=== PATIENT | female | born 1990 | race Hispanic/Latino ===

== ENCOUNTER 2020-01-24 13:33 | Outpatient (CLI) | payer OTHER ==
[2020-01-24 14:06] VITALS: BP 129/69
[2020-01-24 14:56] LABS: Bacteria,Urine 4+ /HPF (Negative); Bilirubin,Urine NEG (Negative); Blood,Urine SM (Negative); Color,Urine Yellow (Yellow); Mucus,Urine FEW /HPF
[2020-01-24] MEDS ORDERED: LACTATED RINGERS 1,000 ML IV SCH (15:00)
== END 2020-01-24 15:50 | disposition home or self-care (01) ==
LOC: TRG 13:33 → APU 13:34 → TRG 15:50
PROVIDERS: ATTEND Obstetrics & Gynecology
DX: O60.03 Preterm labor without delivery, third trimester (principal); Z3A.36 36 weeks gestation of pregnancy
CPT/HCPCS: 59025; 81001; 87086

== ENCOUNTER 2020-01-31 15:21 | Observation (INO) | payer OTHER ==
[2020-01-31] MEDS ORDERED: LACTATED RINGERS 1,000 ML IV ONE (16:10)
[2020-01-31 16:35] LABS: Bacteria,Urine 1+ /HPF (Negative); Bilirubin,Urine NEG (Negative); Blood,Urine SM (Negative); Color,Urine Amber (Yellow); Protein,Urine <15 mg/dL mg/dL (Negative)
[2020-01-31] MEDS ORDERED: ACETAMINOPHEN 500 MG TAB PO ONE (16:47)
--- NOTE | 2020-01-31 17:46 | Ultrasound Report ---
ULTRASOUND RENAL INDICATION / CLINICAL INFORMATION: r/o kidney stones.. COMPARISON: None available. FINDINGS: RIGHT KIDNEY: Length = 9.9 cm. [normal > 9 cm] - Parenchymal Thickness = 1.4 cm. [normal > 1.5 cm] - Echogenicity: Normal. - Hydronephrosis: Mild - Cyst or mass: No significant abnormality. - Stones: 9 mm nonobstructive calyceal stone in the midpole region. LEFT KIDNEY: Length = 11.8 cm. [normal > 9 cm] - Parenchymal Thickness = 1.7 cm. [normal > 1.5 cm] - Echogenicity: Normal. - Hydronephrosis: Mild - Cyst or mass: No significant abnormality. - Stones: Scattered punctate bilateral nonobstructive nephrolithiasis. URINARY BLADDER: No significant abnormality. FREE FLUID: None. ADDITIONAL FINDINGS: None. IMPRESSION: 1. Bilateral nonobstructive nephrolithiasis but there is also mild bilateral hydronephrosis which cou ld be related to distal compression of the ureters or the bladder in this patient. Signer Name: Michael Crowell MD Signed: 01/31/2020 5:41 PM Workstation Name: [id number]
--- NOTE | 2020-01-31 18:47 | History and Physical Report ---
History of Present Illness Date of examination: 01/31/20 Date of admission: 01/31/2020 Chief complaint: blood in my urine History of present illness: Pt is a 29 y/o 37 0/7 weeks presents c/o gross hematuria and severe dysuria. Pt has bilateral kidney stones that she states she has had for some time and during the has had no problems except for microscopic hematuria with negative urine cultures. Most recently she was seen in triage last week and started on Macrobid but urine cx from that visit was also negative. Today she has more blood in urine and states it feels like a cutting burning sensation as the urine comes out. She denies any fevers or chills. States she has not seen any stones. She was checked by Tiesha CARDONA and noted to be closed and I did nor re-exmaine her. Pt admitted to pain relief as well as to have evaluation by MFM and urology regarding her stones. Stones seen on reneal sonogram but also bilateral hydronephrosis. She does not c/o back pain or vaginal bleeding. +FM. Initial fetus showed some tachycardia but responded to IV hydration. Pt GBS is negative. I d/w plan of care and both her and agree. All questions were addressed and answered. She declines narcotic pain meds at this time and prefers tylenol po for now. EDC Calculations LMP: 02/08/2020 EDC Confirmation: 02/21/2020 Gestational Age: 7 6/7 weeks Past History : 2 Term Births: 1 Premature Births: 0 Living Children: 1 Para: 1 Mult. Births: 0 Prev : 0 Aborta: 0 Elect. Ab: 0 Spont. Ab: 0 Ectopics: 0 # 1 Delivery date: 03/18/2012 Weeks Gestation: 39 labor: no Delivery type: Vacuum Hours of labor: 15 Anesthesia type: epidural Delivery location: [facility] Sex: female weight: 7.75 Comments: Meconium Past Medical History: Anxiety Fibroids (2017) Kidney Stone (2019) Past Surgical History: Cholecystectomy (2017) Family History Summary: Other family member - Has Family History of Hypertension - Entered On: 07/11/2019 Other family member - Has Family History of CVA or Stroke - Entered On: 07/11/2019 General Comments - FH: No Family History of Breast Cancer No Family History of Colon Cancer No Family History of Ovarvian Cancer Social History: Patient is single no etoh, no illicit drug use, no tobacco use Marital Status: Engaged Children: 1 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 of genital herpes: no Genetic History Congenital Heart Defect: Mom: no Dad: no Yolanda Disease: Mom: no Dad: no Thalassemia Mom: no Dad: no Neural Tube Defect Mom: no Dad: no Down's Syndrome Mom: no Dad: no George-Sachs Mom: no Dad: no Sickle Cell Disease/Trait Mom: no Dad: no Hemophilia Mom: no Dad: no Muscular Dystrophy Mom: no Dad: no Cystic Fibrosis Mom: no Dad: no Maggie Chorea Mom: no Dad: no Mental Retardation Mom: no Dad: no Fragile X Mom: no Dad: no Other Genetic/Chromosomal Disorder Mom: no Dad: no Child w/other defect Mom: no Dad: no Active Medications (reviewed today): RX 1 TABS ( VIT-FE FUMARATE-FA TABS) one po q day ZOFRAN ODT 8 MG ORAL TABLET DISINTEGRATING (ONDANSETRON) 1 po q12hrs prn MACROBID 100 MG ORAL CAPSULE (NITROFURANTOIN MONOHYD MACRO) 1 bid po PNV () Current Allergies (reviewed today): * HYDROCODONE (Critical) AUGMENTIN (AMOXICILLIN-POT CLAVULANATE TABS) (Critical) Past History Past Medical History: kidney stones, other (anxiety) Past Surgical History: other (see hpi) 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 (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 hpi) Family/Genetic History: other (see hpi) Social history: no significant social history, - Obstetrical History Expected Date of Delivery: 02/21/20 Actual Gestation: 37 Week(s) 0 Day(s) : 2 Para: 1 Number of Living Children: 1 Medications and Allergies Allergies Allergy/AdvReac Type Severity Reaction Status Date / Time No Known Allergies Allergy Verified 01/24/20 13:57 Review of Systems All systems: negative - Vital Signs Vital signs: Vital Signs Pulse Pulse Ox 101 H 98 01/31/20 16:22 01/31/20 16:22 Temp Pulse Resp BP Pulse Ox 97 H 16 119/73 98 01/31/20 16:37 01/31/20 17:04 01/31/20 16:23 01/31/20 16:37 - Physical Exam Lungs: Positive: Normal air movement Abdomen: Positive: normal appearance, soft. Negative: distention, tenderness, guarding Genitourinary (Female): Positive: other (deferred as pt was examined by senior system operator earlier and has no new c/o) - Obstetrical FHR: category 1 Results Abnormal lab results 01/31/20 Range/Units 16:10 Urine WBC (Auto) 22.0 H (0.0-6.0) /HPF All other labs normal. Assessment and Plan - Patient Problems (1) 37 weeks gestation of Current Visit: Yes Status: Acute (2) Hematuria Current Visit: Yes Status: Acute Plan to address problem: -likely due to renal stones. -Will obtain consult with urology to determine if any treatment is recommended at time (3) Renal stones Current Visit: Yes Status: Acute Plan to address problem: -see bilaterally. Unclear if larger than previously because previous study not available -[facility] consultation regarding timing of delivery given pt does have renal stones, bilateral hydronephrosis and is symptomatic -urology consultation -pain management at this time.
[2020-01-31] MEDS ORDERED: SIMETHICONE 80 MG CHEW TAB PO PRN (18:56)
[2020-01-31] MEDS ORDERED: diphenhydrAMINE 25 MG CAP PO PRN (18:56)
[2020-01-31] MEDS ORDERED: ACETAMINOPHEN 325 MG TAB PO PRN (18:56)
[2020-01-31] MEDS ORDERED: DOCUSATE SODIUM 100 MG CAP PO PRN (18:56)
[2020-01-31] MEDS ORDERED: LACTATED RINGERS 1,000 ML IV SCH (19:00)
[2020-01-31] MEDS ORDERED: ACETAMINOPHEN 500 MG TAB PO PRN (19:20)
[2020-01-31] MEDS: cefTRIAXone/NS 1 GM/50 ML 1 GM/50 ML BAG IV SCH (19:51)
[2020-01-31 19:58] LABS: Basophils # (Auto) 0.1 K/mm3 (0.0-0.1); Basophils % (Auto) 0.5 % (0.0-1.8); Eosinophils # (Auto) 0.2 K/mm3 (0.0-0.4); Eosinophils % (Auto) 1.6 % (0.0-4.3); Hematocrit 30.2 % (30.3-42.9); Lymphocytes # (Auto) 1.7 K/mm3 (1.2-5.4); Lymphocytes % (Auto) 16.2 % (13.4-35.0); Mean Corpuscular HGB Conc 33 % (30-34); Mean Corpuscular Volume 81 fl (79-97); Monocytes # (Auto) 0.8 K/mm3 (0.0-0.8); Monocytes % (Auto) 7.3 % (0.0-7.3); Platelet Count 250 K/mm3 (140-440); Red Blood Count 3.71 M/mm3 (3.65-5.03); Red Cell Distribution Width 14.2 % (13.2-15.2)
[2020-01-31 20:12] LABS: Alanine Aminotransferase 12 units/L (7-56); Albumin 3.3 g/dL (3.9-5); Blood Urea Nitrogen 5 mg/dL (7-17); Calcium 8.5 mg/dL (8.4-10.2); Hemolysis Index 0
[2020-01-31 20:13] LABS: BUN/Creatinine Ratio 8
--- NOTE | 2020-01-31 20:56 | Event Note ---
Date: 01/31/20 Previous triage visit on 01/24/20 pt was noted to have no nitrates on UA but was d/c home on macrobid and also had negative urine culture. Today she has + nitrates and urine culture is pending. Will treat with IV rocephine until cultures have resulted.
[2020-01-31] MEDS: PHENAZOPYRIDINE 100 MG TAB PO SCH (22:00)
[2020-02-01] MEDS: PHENAZOPYRIDINE 100 MG TAB PO SCH ×3 (05:45→20:25)
--- NOTE | 2020-02-01 08:13 | Progress Note ---
Assessment and Plan patient resting, reports dysuria has improved. waiting on AMFM and Nephrology consult. Continue current management. pt reports + FM, denies ctx, leaking or bleeding - Patient Problems (1) Dysuria Current Visit: Yes Status: Acute Plan to address problem: urine culture negative for infection (2) 37 weeks gestation of Current Visit: Yes Status: Acute (3) Hematuria Current Visit: Yes Status: Acute (4) Renal stones Current Visit: Yes Status: Acute Subjective - Subjective Date of service: 02/01/20 Principal diagnosis: IUP @ 37+1, dysuria Patient reports: movement normal, no new complaints, no loss of fluid, no vaginal bleeding, no contractions Objective - Vital Signs Vital Signs: Vital Signs - 12hr 01/31/20 01/31/20 01/31/20 20:43 20:45 23:24 Temperature 98.2 F 97.7 F Pulse Rate 90 90 97 H Respiratory 18 20 Rate Blood Pressure 115/72 114/58 Blood Pressure 115/72 114/58 [Left] 02/01/20 05:47 Temperature 98.9 F Pulse Rate 97 H Respiratory 18 Rate Blood Pressure 113/66 Blood Pressure 113/66 [Left] - Exam Breasts: normal Cardiovascular: Regular rate Lungs: Clear to auscultation, Normal air movement Abdomen: Present: normal appearance, soft Vulva: both: normal Uterine Contraction Monitor Mode: External Uterine Contraction Pattern: Absent Uterine Tone Measurement Phase: Resting Extremities: normal Deep Tendon Reflex Grade: Normal +2 - Labs Labs: Abnormal Labs 01/31/20 01/31/20 01/31/20 16:10 19:13 19:13 Hgb 10.0 L Hct 30.2 L MCH 27 L Seg Neutrophils % 74.4 H Seg Neutrophils # 7.9 H Carbon Dioxide 20 L BUN 5 L Total Protein 6.1 L Albumin 3.3 L Urine WBC (Auto) 22.0 H Laboratory Results - last 24 hr 01/31/20 01/31/20 01/31/20 16:10 19:00 19:13 WBC 10.6 RBC 3.71 Hgb 10.0 L Hct 30.2 L MCV 81 MCH 27 L MCHC 33 RDW 14.2 Plt Count 250 Lymph % (Auto) 16.2 Overton % (Auto) 7.3 Eos % (Auto) 1.6 Baso % (Auto) 0.5 Lymph # 1.7 Overton # 0.8 Eos # 0.2 Baso # 0.1 Seg Neutrophils % 74.4 H Seg Neutrophils # 7.9 H Sodium Potassium Chloride Carbon Dioxide Anion Gap BUN Creatinine Estimated GFR BUN/Creatinine Ratio Glucose Calcium Total Bilirubin AST ALT Alkaline Phosphatase Total Protein Albumin Albumin/Globulin Ratio Urine Color Mulu Urine Turbidity Cloudy Urine pH 6.0 Ur Specific Bethany 1.011 Urine Protein <15 mg/dl Urine Glucose (UA) Neg Urine Ketones Neg Urine Blood Sm Urine Nitrite Pos Urine Bilirubin Neg Urine Urobilinogen 4.0 Ur Leukocyte Esterase Sm Urine WBC (Auto) 22.0 H Urine RBC (Auto) 29.0 U Epithel Cells (Auto) 10.0 Urine Bacteria (Auto) 1+ Urine WBC Clumps 2+ Syphilis IgG Antibody Blood Type O POSITIVE Antibody Screen Negative 01/31/20 01/31/20 19:13 19:13 WBC RBC Hgb Hct MCV MCH MCHC RDW Plt Count Lymph % (Auto) Overton % (Auto) Eos % (Auto) Baso % (Auto) Lymph # Overton # Eos # Baso # Seg Neutrophils % Seg Neutrophils # Sodium 137 Potassium 3.7 Chloride 103.1 Carbon Dioxide 20 L Anion Gap 18 BUN 5 L Creatinine 0.6 Estimated GFR > 60 BUN/Creatinine Ratio 8 Glucose 78 Calcium 8.5 Total Bilirubin 0.30 AST 17 ALT 12 Alkaline Phosphatase 112 Total Protein 6.1 L Albumin 3.3 L Albumin/Globulin Ratio 1.2 Urine Color Urine Turbidity Urine pH Ur Specific Bethany Urine Protein Urine Glucose (UA) Urine Ketones Urine Blood Urine Nitrite Urine Bilirubin Urine Urobilinogen Ur Leukocyte Esterase Urine WBC (Auto) Urine RBC (Auto) U Epithel Cells (Auto) Urine Bacteria (Auto) Urine WBC Clumps Syphilis IgG Antibody Nonreactive Blood Type Antibody Screen
[2020-02-01] MEDS ORDERED: PRENATAL VIT27-FE FUMARATE-FOLIC ACID VIT TAB PO SCH (10:00)
[2020-02-01] MEDS: cefTRIAXone/NS 1 GM/50 ML 1 GM/50 ML BAG IV SCH (10:35)
--- NOTE | 2020-02-01 17:41 | Consultation ---
History of Present Illness - Reason for Consult Consult date: 02/01/20 - History of Present Illness new to our service Pt is a 29 y/o 37 0/7 weeks presents c/o gross hematuria and severe dysuria. Pt has bilateral kidney stones that she states she has had for some time and during the has had no problems except for microscopic hematuria with negative urine cultures. Most recently she was seen in triage last week and started on Macrobid but urine cx from that visit was also n egative. Today she has more blood in urine and states it feels like a cutting burning sensation as the urine comes out. She denies any fevers or chills. States she has not seen any stones. She was checked by Tiesha CARDONA and noted to be closed and I did nor re-exmaine her. Pt admitted to pain relief as well as to have evaluation by MFM and urology regarding her stones. No back or flank pain. I d/w plan of care and both her and agree. All questions were addressed and answered. reneal sonogram - 8-9mm renal stones but also bilateral mild hydronephrosis. renal us abd ---IUP A/P 8-9mm renal stones but also bilateral mild hydronephrosis. may have passed a stone with irritation info given no back pain pyridium for dysuria (OB to determine how long)- can also use cranberry pills or juice daily ok to dc home from gu standpoint will need CTAP after delivery Past History Social history: no significant social history, Medications and Allergies Allergies Allergy/AdvReac Type Severity Reaction Status Date / Time No Known Allergies Allergy Verified 01/24/20 13:57 Home Medications Medication Instructions Recorded Confirmed Last Taken Type No Known Home Medications [No 02/01/20 02/01/20 Unknown History Reported Home Medications] Active Meds: Active Medications Acetaminophen (Tylenol) 1,000 mg PO Q4H PRN PRN Reason: Pain,Mild (1-3)/FEVER>100.5/AYALA Diphenhydramine HCl (Benadryl) 25 mg PO Q6H PRN PRN Reason: Itching Docusate Sodium (Colace) 100 mg PO Q12H PRN PRN Reason: Constipation Lactated Ringer's (Lactated Ringers) 1,000 mls @ 125 mls/hr IV DIRECT JONA Ceftriaxone Sodium (Rocephin/Ns 1 Gm/50 Ml) 1 gm in 50 mls @ 100 mls/hr IV Q24HR [facility]; Protocol Last Admin: 02/01/20 10:35 Dose: 100 mls/hr Documented by: Multivitamins/Iron/Calcium ( Vitamin) 1 each PO QDAY [facility] Last Admin: 02/01/20 10:37 Dose: 1 each Documented by: Phenazopyridine HCl (Pyridium) 100 mg PO Q8HR [facility] Last Admin: 02/01/20 14:28 Dose: 100 mg Documented by: Simethicone (Mylicon) 80 mg PO Q6H PRN PRN Reason: Gas pain Exam - Constitutional Vitals: Temp Pulse Resp BP Pulse Ox 97.9 F 84 16 115/64 98 02/01/20 16:00 02/01/20 10:10 02/01/20 16:00 02/01/20 10:10 01/31/20 16:37 Results - Labs CBC & Chem 7: 01/31/20 19:13 01/31/20 19:13 Labs: Abnormal lab results 01/31/20 01/31/20 Range/Units 19:13 19:13 Hgb 10.0 L (10.1-14.3) gm/dl Hct 30.2 L (30.3-42.9) % MCH 27 L (28-32) pg Seg Neutrophils % 74.4 H (40.0-70.0) % Seg Neutrophils # 7.9 H (1.8-7.7) K/mm3 Carbon Dioxide 20 L (22-30) mmol/L BUN 5 L (7-17) mg/dL Total Protein 6.1 L (6.3-8.2) g/dL Albumin 3.3 L (3.9-5) g/dL
[2020-02-01 20:15] VITALS: BP 119/67
--- NOTE | 2020-02-01 20:25 | Discharge Summary ---
Providers - Providers Date of Admission: 01/31/20 18:56 Date of discharge: 02/01/20 Attending physician: ANDERSON IZAGUIRRE 01/31/20 18:56 Consult to Physician [CONS] Routine Comment: Consulting Provider: BREANA DUNN Physician Instructions: evaluate for timing of delivery Reason For Exam: 37 wks, dysuria,kidney stones,hematuria 01/31/20 18:59 Consult to Physician [CONS] Routine Comment: Consulting Provider: KATIE SALAS Physician Instructions: please evaute for recommdations for treatment Reason For Exam: 37wk;severe dysuria, gross hematuria,renal stones Primary care physician: ANDERSON IZAGUIRRE Hospitalization Reason for admission: observation, IUP at term, other (hematuria, renal stones, mild hydronephrosis) Procedure: other (renal US, monitoring) Discharge diagnosis: other (hematuria, renal stones, mild hydronephrosis) Hospital course: This patient was admitted for severe dysuria and gross hematuria. She has a history of kidney stones and microscopic hematuria. She has completed 2 courses of Macrobid however her urine cultures have been negative. Today she feels better, she received Rocephin IV and Pyridium. Renal US revealed 8-9mm renal stones but also bilateral mild hydronephrosis.Urology consults feels she may have passed a stone with irritation. Recommendation noted. Patient resting in bed with at bedside. Cervix 1/40/-3/post/soft. FHT's Cat 1. AVSS. UC negative Will allow home with pyridium. Will hold antibiotics since culture is negative. Questions were encouraged and answered, they both voiced understanding and desire discharge home Condition at discharge: Good Disposition: DC-01 TO HOME OR SELFCARE - Discharge Diagnoses (1) 37 weeks gestation of Status: Acute (2) Dysuria Status: Acute (3) Hematuria Status: Chronic (4) Renal stones Status: Chronic Plan - Provider Discharge Summary Diet: routine Instructions: other (Labor precautions and kick counts, proper hand hygiene, social distancing, and facial cloth covering in public areas.) Additional instructions: [] Smoking cessation referral if applicable(refer to patient education folder for contact #) [] Refer to [facility]'s [facility] Booklet Call your doctor immediately for: * Fever > 100.5 * Heavy vaginal bleeding ( >1 pad per hour) * Severe persistent headache * Shortness of breath * Reddened, hot, painful area to leg or breast * Drainage or odor from incision. * Keep incision clean and dry at all times and follow doctor's instructions regarding bathing/showering Prescription for pyridium erx to Suzanne Huddleston thru office EMR No sex, no lifting >25lbs. - Follow up plan Follow up: KARMEN URIARTE CNM [Advanced Practice Nurse] - 02/05/20 3:30 pm ([place] office)
== END 2020-02-01 20:56 | disposition home or self-care (01) ==
LOC: APU 15:21 → TRG 15:21 → LD 18:56 → TRG 18:56
PROVIDERS: ADMIT Obstetrics & Gynecology; ATTEND Obstetrics & Gynecology
DX: O26.833 Pregnancy related renal disease, third trimester (principal); N13.2 Hydronephrosis with renal and ureteral calculous obstruction; O99.333 Smoking (tobacco) complicating pregnancy, third trimester; F17.210 Nicotine dependence, cigarettes, uncomplicated; O99.343 Other mental disorders complicating pregnancy, third trimester; F41.9 Anxiety disorder, unspecified; Z79.899 Other long term (current) drug therapy; Z90.49 Acquired absence of other specified parts of digestive tract; Z3A.37 37 weeks gestation of pregnancy
CPT/HCPCS: 36415; 76770; 80053; 81001; 85025; 86592; 86850; 86900; 86901; 87086; 96361; 96365; 96366; G0378; J0696; J7120

== ENCOUNTER 2020-02-05 18:02 | Observation (INO) | payer OTHER ==
[2020-02-05] MEDS ORDERED: LACTATED RINGERS 1,000 ML ONE (18:28)
[2020-02-05 19:17] LABS: Bilirubin,Urine NEG (Negative); Blood,Urine SM (Negative); Color,Urine Straw (Yellow); Protein,Urine <15 mg/dL mg/dL (Negative); RBC,Urine < 1.0 /HPF (0.0-6.0); Urobilinogen,Urine < 2.0 mg/dL (<2.0)
[2020-02-05 19:32] LABS: Hematocrit 28.5 % (30.3-42.9); Hemoglobin 9.6 gm/dl (10.1-14.3); Mean Corpuscular HGB Conc 34 % (30-34); Mean Corpuscular Volume 81 fl (79-97); Platelet Count 267 K/mm3 (140-440); Red Blood Count 3.51 M/mm3 (3.65-5.03); Red Cell Distribution Width 14.3 % (13.2-15.2)
[2020-02-05 20:05] LABS: Eosinophils % (Manual) 0 % (0.0-4.3); Myelocytes # (Manual) 0.1 K/mm3; Total Cells Counted 100
[2020-02-05 20:06] LABS: Anisocytosis 1+
--- NOTE | 2020-02-05 20:51 | Ultrasound Report ---
ULTRASOUND OBSTETRIC INDICATION: well being. TECHNIQUE: Transabdominal. COMPARISON: None available. FINDINGS: There is a single intrauterine . Heart Rate: 173 beats per minute. Position: cephalic. Amniotic Fluid Volume: decreased Amniotic Fluid Index (ANNMARIE) in cm (if calculated): 5.4. Maternal Adnexa: No significant abnormality. tone: 2 breathin movements: 2 Amniotic fluid: 2 IMPRESSION: 1. Single, living intrauterine with oligohydramnios. 2. Biophysical profile is 8 out of 8. Signer Name: Ez Waterman MD Signed: 02/05/2020 8:47 PM Workstation Name: [id number]
[2020-02-05] MEDS: LACTATED RINGERS 1,000 ML IV SCH (21:15)
--- NOTE | 2020-02-05 21:39 | History and Physical Report ---
History of Present Illness Date of examination: 02/05/20 Date of admission: 02/05/2020 Chief complaint: Pt was sent from the office d/t heart rate via Doppler in the 180's. Upon further questioning pt also states that she has been leaking small amounts of clear fluid for 2 weeks. Past History Past Medical History: no pertinent history Past Surgical History: no surgical history Family/Genetic History: none - Obstetrical History Expected Date of Delivery: 02/21/20 Actual Gestation: 37 Week(s) 6 Day(s) : 2 Para: 1 Hx # Term Pregnancies: 1 Number of Pregnancies: 0 Spontaneous Abortions: 0 Induced : 0 Number of Living Children: 1 Medications and Allergies Allergies Allergy/AdvReac Type Severity Reaction Status Date / Time No Known Allergies Allergy Verified 01/24/20 13:57 Home Medications Medication Instructions Recorded Confirmed Last Taken Type No Known Home Medications [No 02/01/20 02/01/20 Unknown History Reported Home Medications] Active Meds: Active Medications Lactated Ringer's (Lactated Ringers) 1,000 mls @ 125 mls/hr IV DIRECT JONA - Vital Signs Vital signs: Vital Signs Pulse Pulse Ox 103 H 97 02/05/20 18:22 02/05/20 18:22 Temp Pulse Resp BP Pulse Ox 98.4 F 89 20 127/68 97 02/05/20 18:25 02/05/20 20:58 02/05/20 18:25 02/05/20 18:25 02/05/20 20:58 - Physical Exam Breasts: Positive: deferred Cardiovascular: Regular rate Lungs: Positive: Normal air movement Abdomen: Positive: normal appearance, soft Genitourinary (Female): Positive: normal external genitalia, normal perenium Vulva: both: normal Vagina: Positive: normal moisture, other (Per speculum exam: No pooling, nitrazine negative. ) Cervix: Positive: lesion Uterus: Positive: normal size, normal contour Adnexa: both: normal Anus/Rectum: Positive: normal perianal skin Extremities: Positive: normal Deep Tendon Reflex Grade: Normal +2 - Obstetrical FHR: category 1 Cervical Dilatation: 0 (Cervical exam per office visit. Appears closed per speculum exam.) Cervical Effacement Percentage: 0 station: -3 Uterine Contraction Pattern: Absent Uterine Tone Measurement Phase: Resting Results Result Diagrams: 02/05/20 18:50 Abnormal lab results 02/05/20 Range/Units 18:50 RBC 3.51 L (3.65-5.03) M/mm3 Hgb 9.6 L (10.1-14.3) gm/dl Hct 28.5 L (30.3-42.9) % MCH 27 L (28-32) pg Seg Neuts % (Manual) 77.0 H (40.0-70.0) % Seg Neutrophils # Man 8.3 H (1.8-7.7) K/mm3 All other labs normal. Assessment and Plan 29 y.o. @ 37.5 wks, sent from office for tachycardia. Found to have low end ANNMARIE of 5.4 on ultrasound. Pt states that she has been leaking a small amount of clear fluid for two weeks. Consulted with Dr. Padilla. Plan to admit patient to obs and repeat ANNMARIE in the AM. Pt aware and agrees to plan of care.
[2020-02-05] MEDS ORDERED: diphenhydrAMINE 25 MG CAP PO PRN (21:43)
[2020-02-05] MEDS ORDERED: ACETAMINOPHEN 500 MG TAB PO PRN (21:43)
[2020-02-06] MEDS: LACTATED RINGERS 1,000 ML IV SCH ×2 (03:28→07:53)
--- NOTE | 2020-02-06 06:31 | Progress Note ---
Assessment and Plan Pt in good spirits, resting. Denies leaking fluid, ctx. Reports good FM. IUP @ 37w6d Initial ANNMARIE 5.4 Repeat scheduled for this AM. All questions addressed. Subjective - Subjective Date of service: 02/06/20 (denies any leakage/ctx) Principal diagnosis: IUP 37w6d Low ANNMARIE 5; repeat US this AM Patient reports: movement normal Objective - Vital Signs Vital Signs: Vital Signs - 12hr 02/05/20 02/05/20 02/05/20 18:38 18:43 18:48 Temperature Pulse Rate 99 H 95 H 95 H Respiratory Rate Blood Pressure O2 Sat by Pulse 94 95 95 Oximetry 02/05/20 02/05/20 02/05/20 18:53 18:58 19:00 Temperature Pulse Rate 94 H 96 H 97 H Respiratory Rate Blood Pressure O2 Sat by Pulse 95 96 94 Oximetry 02/05/20 02/05/20 02/05/20 19:03 19:08 19:13 Temperature Pulse Rate 93 H 88 94 H Respiratory Rate Blood Pressure O2 Sat by Pulse 95 97 97 Oximetry 02/05/20 02/05/20 02/05/20 19:20 19:25 19:30 Temperature Pulse Rate 91 H 97 H 93 H Respiratory Rate Blood Pressure O2 Sat by Pulse 96 97 97 Oximetry 02/05/20 02/05/20 02/05/20 19:35 19:40 20:38 Temperature Pulse Rate 98 H 93 H 92 H Respiratory Rate Blood Pressure O2 Sat by Pulse 96 97 96 Oximetry 02/05/20 02/05/20 02/05/20 20:43 20:48 20:53 Temperature Pulse Rate 94 H 101 H 90 Respiratory Rate Blood Pressure O2 Sat by Pulse 96 96 97 Oximetry 02/05/20 02/05/20 02/05/20 20:58 22:24 22:35 Temperature 98.3 F Pulse Rate 89 78 Respiratory 18 Rate Blood Pressure 94/51 O2 Sat by Pulse 97 96 Oximetry 02/06/20 02:27 Temperature Pulse Rate 91 H Respiratory Rate Blood Pressure 108/56 O2 Sat by Pulse Oximetry - Exam Breasts: deferred Cardiovascular: Regular rate Lungs: Normal air movement Abdomen: Present: normal appearance, soft. Absent: distention, tenderness Uterus: Present: normal FHR: auscultation normal, category 1 Uterine Contraction Monitor Mode: External Uterine Contraction Pattern: Irregular Uterine Tone Measurement Phase: Resting Uterine Contraction Intensity: Mild Extremities: normal Deep Tendon Reflex Grade: Normal +2 - Labs Labs: Abnormal Labs 02/05/20 18:50 RBC 3.51 L Hgb 9.6 L Hct 28.5 L MCH 27 L Seg Neuts % (Manual) 77.0 H Seg Neutrophils # Man 8.3 H Laboratory Results - last 24 hr 02/05/20 02/05/20 02/05/20 18:50 18:50 18:50 WBC 10.8 RBC 3.51 L Hgb 9.6 L Hct 28.5 L MCV 81 MCH 27 L MCHC 34 RDW 14.3 Plt Count 267 Add Manual Diff Complete Total Counted 100 Seg Neuts % (Manual) 77.0 H Band Neutrophils % 0 Lymphocytes % (Manual) 15.0 Reactive Lymphs % (Man) 0 Monocytes % (Manual) 6.0 Eosinophils % (Manual) 0 Basophils % (Manual) 1.0 Metamyelocytes % 0 Myelocytes % 1.0 Promyelocytes % 0 Blast Cells % 0 Nucleated RBC % Not Reportable Seg Neutrophils # Man 8.3 H Band Neutrophils # 0.0 Lymphocytes # (Manual) 1.6 Abs React Lymphs (Man) 0.0 Monocytes # (Manual) 0.6 Eosinophils # (Manual) 0.0 Basophils # (Manual) 0.1 Metamyelocytes # 0.0 Myelocytes # 0.1 Promyelocytes # 0.0 Blast Cells # 0.0 WBC Morphology Not Reportable Hypersegmented Neuts Not Reportable Hyposegmented Neuts Not Reportable Hypogranular Neuts Not Reportable Smudge Cells Not Reportable Toxic Granulation Not Reportable Toxic Vacuolation Not Reportable Dohle Bodies Not Reportable Pelger-Huet Anomaly Not Reportable Aliza Rods Not Reportable Platelet Estimate Appears normal Clumped Platelets Not Reportable Plt Clumps, EDTA Not Reportable Large Platelets Not Reportable Giant Platelets Not Reportable Platelet Satelliting Not Reportable Plt Morphology Comment Not Reportable RBC Morphology Not Reportable Dimorphic RBCs Not Reportable Polychromasia Not Reportable Hypochromasia Not Reportable Poikilocytosis Not Reportable Anisocytosis 1+ Microcytosis Not Reportable Macrocytosis Not Reportable Spherocytes Not Reportable Pappenheimer Bodies Not Reportable Sickle Cells Not Reportable Target Cells Not Reportable Tear Drop Cells Not Reportable Ovalocytes Not Reportable Helmet Cells Not Reportable Rizzo-[place] Bodies Not Reportable Ringle Rings Not Reportable Ethel Cells Not Reportable Bite Cells Not Reportable Crenated Cell Not Reportable Elliptocytes Not Reportable Acanthocytes (Spur) Not Reportable Rouleaux Not Reportable Hemoglobin C Crystals Not Reportable Schistocytes Not Reportable Malaria parasites Not Reportable Sergio Bodies Not Reportable Hem Pathologist Commnt No Urine Color Urine Turbidity Urine pH Ur Specific [place] Urine Protein Urine Glucose (UA) Urine Ketones Urine Blood Urine Nitrite Urine Bilirubin Urine Urobilinogen Ur Leukocyte Esterase Urine WBC (Auto) Urine RBC (Auto) U Epithel Cells (Auto) Syphilis IgG Antibody Nonreactive Blood Type O POSITIVE Antibody Screen Negative 02/05/20 Unknown WBC RBC Hgb Hct MCV MCH MCHC RDW Plt Count Add Manual Diff Total Counted Seg Neuts % (Manual) Band Neutrophils % Lymphocytes % (Manual) Reactive Lymphs % (Man) Monocytes % (Manual) Eosinophils % (Manual) Basophils % (Manual) Metamyelocytes % Myelocytes % Promyelocytes % Blast Cells % Nucleated RBC % Seg Neutrophils # Man Band Neutrophils # Lymphocytes # (Manual) Abs React Lymphs (Man) Monocytes # (Manual) Eosinophils # (Manual) Basophils # (Manual) Metamyelocytes # Myelocytes # Promyelocytes # Blast Cells # WBC Morphology Hypersegmented Neuts Hyposegmented Neuts Hypogranular Neuts Smudge Cells Toxic Granulation Toxic Vacuolation Dohle Bodies Pelger-Huet Anomaly Aliza Rods Platelet Estimate Clumped Platelets Plt Clumps, EDTA Large Platelets Giant Platelets Platelet Satelliting Plt Morphology Comment RBC Morphology Dimorphic RBCs Polychromasia Hypochromasia Poikilocytosis Anisocytosis Microcytosis Macrocytosis Spherocytes Pappenheimer Bodies Sickle Cells Target Cells Tear Drop Cells Ovalocytes Helmet Cells Rizzo-[place] Bodies Ringle Rings Ethel Cells Bite Cells Crenated Cell Elliptocytes Acanthocytes (Spur) Rouleaux Hemoglobin C Crystals Schistocytes Malaria parasites Sergio Bodies Hem Pathologist Commnt Urine Color Straw Urine Turbidity Clear Urine pH 7.0 Ur Specific [place] 1.004 Urine Protein <15 mg/dl Urine Glucose (UA) Neg Urine Ketones Neg Urine Blood Sm Urine Nitrite Neg Urine Bilirubin Neg Urine Urobilinogen < 2.0 Ur Leukocyte Esterase Neg Urine WBC (Auto) 1.0 Urine RBC (Auto) < 1.0 U Epithel Cells (Auto) 2.0 Syphilis IgG Antibody Blood Type Antibody Screen
--- NOTE | 2020-02-06 09:19 | Discharge Summary ---
Providers - Providers Date of Admission: 02/05/20 21:17 Date of discharge: 02/06/20 (ANNMARIE 7 on repeat US) Attending physician: ANDERSON IZAGUIRRE Primary care physician: ANDERSON IZAGUIRRE Hospitalization Reason for admission: Abnl FHR in office Condition: Good Pertinent studies: US initial ANNMARIE 5.4 and BPP 8/8; Repeat US ANNMARIE 7 Disposition: DC-01 TO HOME OR SELFCARE - Discharge Diagnoses (1) ANNMARIE (amniotic fluid index) borderline low Status: Acute Comment: Keep emile OB appt on 02/12/20 Core Measure Documentation - Palliative Care Palliative Care/ Comfort Measures: Not Applicable - Core Measures Any of the following diagnoses?: none - VTE Discharge Requirements Deep Vein Thrombosis/Pulmonary Embolism Present on Admission: No Has pt received <5 days of overlap therapy or INR<2.0: No Anticoagulant overlap therapy prescribed at discharge: No Contraindication No Overlap Therapy order at DC: Not Indicated - Acute CO Discharge Requirements Aspirin at discharge: No Reason for no aspirin on DC: Medical contraindication BRIGIDA/ARB for LVSD if EF <40%: Not Applicable Reason for no BRIGIDA/ARB: Medical contraindication Beta dharmesh at discharge: No Reason for no beta dharmesh on DC: Medical contraindication Statin for LDL = or >100 mg/dl on DC: Not Applicable Reason for no statin on DC: Medical contraindication - Heart Failure Discharge Requirements BRIGIDA/ARB for LVSD if EF <40%: Not Applicable Reason for no BRIGIDA/ARB: Medical contraindication Beta dharmesh at discharge: No Reason for no beta dharmesh on DC: Medical contraindication - Stroke Discharge Requirements Statin for LDL = or >70 mg/dl on DC: Not Applicable Reason for no statin on DC: Not Indicated Anticoag for atrial fib/atrial flutter: Not Applicable Reason for no anticoag for AF/F on DC: Not Indicated Antithrombotic for ischemic stroke: No Reason for no antithrombotic on DC: Not Indicated Exam - Constitutional Vitals: Temp Pulse Resp BP Pulse Ox 98.7 F 86 16 110/57 97 02/06/20 07:46 02/06/20 08:59 02/06/20 07:46 02/06/20 07:48 02/06/20 08:59 General appearance: Present: no acute distress, well-nourished - EENT Eyes: Present: PERRL ENT: hearing intact, clear oral mucosa - Neck Neck: Present: supple, normal ROM - Respiratory Respiratory effort: normal Respiratory: bilateral: CTA - Cardiovascular Heart Sounds: Present: S1 & S2. Absent: rub, click - Extremities Extremities: pulses symmetrical, No edema Peripheral Pulses: within normal limits - Abdominal General gastrointestinal: Present: soft, non-tender, non-distended, normal bowel sounds Female genitourinary: Present: normal - Integumentary Integumentary: Present: clear, warm, dry - Musculoskeletal Musculoskeletal: gait normal, strength equal bilaterally - Psychiatric Psychiatric: appropriate mood/affect, intact judgment & insight - Neurologic Neurologic: CNII-XII intact, moves all extremities Plan Activity: advance as tolerated Weight Bearing Status: Weight Bear as Tolerated Diet: regular Special Instructions: other (Increase po hydration) Follow up with: ANDERSON IZAGUIRRE MD [Primary Care Provider] - 02/12/20 (Keep appointment with Maria Guadalupe on 02/12/2020 Drink more water every day atleast 64oz. Call with any concerns.)
--- NOTE | 2020-02-06 09:21 | Ultrasound Report ---
ULTRASOUND OBSTETRIC LIMITED INDICATION / CLINICAL INFORMATION: ANNMARIE. Clinical Gestational Age (GA): 37.6 weeks.days COMPARISON: Ultrasound biophysical profile from yesterday. FINDINGS: HEART RATE (beats per minute): 161 AMNIOTIC FLUID INDEX (cm) = 7.9 (normal = 7-24 cm) PRESENTATION: Cephalic. ADDITIONAL FINDINGS: None. IMPRESSION: 1. Amniotic fluid index is low normal at 7.9 cm. Signer Name: Levi Harmon MD Signed: 02/06/2020 9:17 AM Workstation Name: [id number]
[2020-02-06 10:31] VITALS: BP 104/63
== END 2020-02-06 10:45 | disposition home or self-care (01) ==
LOC: TRG 18:02 → APU 18:03 → LD 21:17 → TRG 21:17
PROVIDERS: ADMIT Obstetrics & Gynecology; ATTEND Obstetrics & Gynecology
DX: O41.03X0 Oligohydramnios, third trimester, not applicable or unspecified (principal); O36.8330 Maternal care for abnormalities of the fetal heart rate or rhythm, third trimester, not applicable or unspecified; R00.0 Tachycardia, unspecified; O42.92 Full-term premature rupture of membranes, unspecified as to length of time between rupture and onset of labor; Z3A.37 37 weeks gestation of pregnancy
CPT/HCPCS: 36415; 76815; 76819; 81001; 85025; 86592; 86850; 86900; 86901; 96360; 96361; G0378; J7120; 85007

== ENCOUNTER 2020-02-23 17:13 | Inpatient (IN) | payer OTHER ==
[2020-02-23] MEDS ORDERED: ePHEDrine SULFATE 50 MG/1 ML INJ IV PRN ×2 (17:43→20:16)
[2020-02-23] MEDS ORDERED: miSOPROStol 200 MCG TAB PR PRN (17:43)
[2020-02-23] MEDS ORDERED: fentaNYL 100 MCG/2 ML INJ IV PRN (17:43)
[2020-02-23] MEDS ORDERED: ACETAMINOPHEN 325 MG TAB PO PRN (17:43)
[2020-02-23] MEDS ORDERED: TERBUTALINE 1 MG/1 ML INJ SUB-Q PRN (17:43)
[2020-02-23] MEDS ORDERED: METHYLERGONOVINE MALEATE 0.2 MG/ML VIAL IM PRN (17:43)
[2020-02-23] MEDS ORDERED: OXYTOCIN 10 UNIT/1 ML INJ IM PRN (17:43)
[2020-02-23] MEDS ORDERED: CARBOPROST TROMETHAMINE 250 MCG/1 ML INJ IM PRN (17:43)
[2020-02-23] MEDS ORDERED: ONDANSETRON 4 MG/2 ML INJ IV PRN (17:43)
[2020-02-23] MEDS ORDERED: MINERAL OIL 30 ML ORAL LIQD PO PRN (17:43)
[2020-02-23] MEDS ORDERED: LIDOCAINE (2%) 20 MG/1 ML VIAL 20 ML MDV INFILTRATI ONE (17:43)
--- NOTE | 2020-02-23 17:59 | History and Physical Report ---
History of Present Illness Date of examination: 02/23/20 Chief complaint: painful contractions History of present illness: EDC Confirmation: 02/21/2020 Past History : 2 Term Births: 1 Premature Births: 0 Living Children: 1 Para: 1 Mult. Births: 0 Prev : 0 Aborta: 0 Elect. Ab: 0 Spont. Ab: 0 Ectopics: 0 # 1 Delivery date: 03/18/2012 Weeks Gestation: 39 labor: no Delivery type: Vacuum Hours of labor: 15 Anesthesia type: epidural Delivery location: [facility] Infant Sex: female weight: 7.75 Comments: Meconium Past Medical History: Anxiety Fibroids (2017) Kidney Stone (2019) Past Surgical History: Cholecystectomy (2017) Family History Summary: Other family member - Has Family History of Hypertension - Entered On: 07/11/2019 Other family member - Has Family History of CVA or Stroke - Entered On: 07/11/2019 General Comments - FH: No Family History of Breast Cancer No Family History of Colon Cancer No Family History of Ovarvian Cancer Social History: Patient is single no etoh, no illicit drug use, no tobacco use Marital Status: Engaged Children: 1 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 of genital herpes: no Genetic History Congenital Heart Defect: Mom: no Dad: no Yolanda Disease: Mom: no Dad: no Thalassemia Mom: no Dad: no Neural Tube Defect Mom: no Dad: no Down's Syndrome Mom: no Dad: no George-Sachs Mom: no Dad: no Sickle Cell Disease/Trait Mom: no Dad: no Hemophilia Mom: no Dad: no Muscular Dystrophy Mom: no Dad: no Cystic Fibrosis Mom: no Dad: no Maggie Chorea Mom: no Dad: no Mental Retardation Mom: no Dad: no Fragile X Mom: no Dad: no Other Genetic/Chromosomal Disorder Mom: no Dad: no Child w/other defect Mom: no Dad: no Active Medications (reviewed today): RX 1 TABS ( VIT-FE FUMARATE-FA TABS) one po q day ZOFRAN ODT 8 MG ORAL TABLET DISINTEGRATING (ONDANSETRON) 1 po q12hrs prn MACROBID 100 MG ORAL CAPSULE (NITROFURANTOIN MONOHYD MACRO) 1 bid po PNV () Current Allergies (reviewed today): * HYDROCODONE (Critical) AUGMENTIN (AMOXICILLIN-POT CLAVULANATE TABS) (Critical) Past History Past Medical History: other (see HPI) Past Surgical History: other (see HPI) 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 (see HPI) Family/Genetic History: other (see HPI) Social history: other (see HPI) - Obstetrical History Expected Date of Delivery: 02/21/20 Actual Gestation: 40 Week(s) 2 Day(s) : 2 Para: 1 Hx # Term Pregnancies: 1 Number of Pregnancies: 0 Spontaneous Abortions: 0 Induced : 0 Number of Living Children: 1 Medications and Allergies Allergies Allergy/AdvReac Type Severity Reaction Status Date / Time No Known Allergies Allergy Verified 01/24/20 13:57 Home Medications Medication Instructions Recorded Confirmed Last Taken Type No Known Home Medications [No 02/01/20 02/01/20 Unknown History Reported Home Medications] Review of Systems All systems: negative - Vital Signs Vital signs: Vital Signs Temp Resp 98.2 F 20 02/23/20 17:35 02/23/20 17:35 Temp Pulse Resp BP Pulse Ox 98.2 F 114 H 20 97 02/23/20 17:35 02/23/20 17:54 02/23/20 17:35 02/23/20 17:54 - Physical Exam Breasts: Positive: normal Cardiovascular: Regular rate Lungs: Positive: Normal air movement Abdomen: Positive: normal appearance, soft Vulva: both: normal - Obstetrical FHR: category 2 Uterine Contraction Monitor Mode: External Cervical 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 Patient Note: PATIENT NOT FASTING Tests: (1) Profile I ([id number]) HBsAg Screen Negative Negative *1 RPR Non Reactive Non Reactive *2 Rubella Antibodies, IgG 1.09 index Immune >0.99 *3 Non-immune <0.90 Equivocal 0.90 - 0.99 Immune >0.99 ABO Grouping O *4 Rh Factor Positive *5 Please note: Prior records for this patient's ABO / Rh type are not available for additional verification. Antibody Screen Negative Negative *6 WBC 9.6 x10E3/uL 3.4-10.8 *7 RBC 4.51 x10E6/uL 3.77-5.28 *8 Hemoglobin 14.3 g/dL 11.1-15.9 *9 Hematocrit 42.1 % 34.0-46.6 *10 MCV 93 fL 79-97 *11 MCH 31.7 pg 26.6-33.0 *12 MCHC 34.0 g/dL 31.5-35.7 *13 RDW 14.1 % 11.7-15.4 *14 Platelets 277 x10E3/uL 150-450 *15 Neutrophils 71 % Not Estab. *16 Lymphs 18 % Not Estab. *17 Monocytes 7 % Not Estab. *18 Eos 4 % Not Estab. *19 Basos 0 % Not Estab. *20 ! Immature Cells <No Reported Value> *21 Neutrophils (Absolute) 6.7 x10E3/uL 1.4-7.0 *22 Lymphs (Absolute) 1.8 x10E3/uL 0.7-3.1 *23 Monocytes(Absolute) 0.6 x10E3/uL 0.1-0.9 *24 Eos (Absolute) 0.4 x10E3/uL 0.0-0.4 *25 Baso (Absolute) 0.0 x10E3/uL 0.0-0.2 *26 ! Immature Granulocytes 0 % Not Estab. *27 ! Immature Grans (Abs) 0.0 x10E3/uL 0.0-0.1 *28 ! NRBC <No Reported Value> *29 Hematology Comments: <No Reported Value> *30 Tests: (2) Toxoplasma gondii Ab, IgG ([id number]) ! Toxoplasma gondii Ab,IgG <3.0 IU/mL 0.0-7.1 *31 Negative <7.2 Equivocal 7.2 - 8.7 Positive >8.7 Tests: (3) HIV Ag/Ab with Reflex ([id number]) HIV Screen 4th Generation wRfx Non Reactive Non Reactive *32 Tests: (4) HCV Ab w/Rflx to Verification ([id number]) ! HCV Ab <0.1 s/co ratio 0.0-0.9 *33 Assessment and Plan 29 y/o @ 40+2, presented with ctx. FHT CAT 2. plan to admit, place ISE/IUPC, epidural PRN - Patient Problems (1) Non-reassuring electronic monitoring tracing Current Visit: Yes Status: Acute Plan to address problem: admission orders in EMR close monitoring for wellbeing augmentation Dr. Conner aware (2) Active labor at term Current Visit: Yes Status: Acute (3) 40 weeks gestation of Current Visit: Yes Status: Acute
[2020-02-23] MEDS ORDERED: OXYTOCIN DRIP 30 UNITS/500 ML BAG IV SCH (18:00)
[2020-02-23] MEDS ORDERED: OXYTOCIN 20 UNIT/1000ML DRIP 20 UNITS/1,000 ML BAG IV SCH (18:00)
[2020-02-23 18:24] LABS: Hematocrit 30.8 % (30.3-42.9); Hemoglobin 9.9 gm/dl (10.1-14.3); Mean Corpuscular HGB Conc 32 % (30-34); Mean Corpuscular Volume 79 fl (79-97); Platelet Count 262 K/mm3 (140-440); Red Blood Count 3.88 M/mm3 (3.65-5.03); Red Cell Distribution Width 15.5 % (13.2-15.2)
[2020-02-23] MEDS: LACTATED RINGERS 1,000 ML IV SCH ×3 (18:33→21:25)
[2020-02-23] MEDS ORDERED: fentaNYL-BUPIV 2 MCG/ML-0.125% 200 MCG/100 ML BAG EPIDURAL ONE (19:33)
[2020-02-23] MEDS ORDERED: DEXMEDETOMIDINE 200 MCG/2 ML VIAL IV ONE (19:57)
[2020-02-23] MEDS ORDERED: NALOXONE 2 MG/2 ML INJ IV PRN (20:16)
--- NOTE | 2020-02-23 20:17 | Anesthesia Consultation ---
Anesthesia Consult and Med Hx Date of service: 02/23/20 - Airway Anesthetic Teeth Evaluation: Good ROM Head & Neck: Adequate Mental/Hyoid Distance: Adequate Mallampati Class: Class II Intubation Access Assessment: Probably Good - Pulmonary Exam CTA: Yes - Cardiac Exam Cardiac Exam: RRR - Pre-Operative Health Status ASA Pre-Surgery Classification: ASA2 Proposed Anesthetic Plan: Epidural - Pulmonary Hx Asthma: No COPD: No Hx Pneumonia: No - Cardiovascular System Hx Hypertension: No - Central Nervous System Hx Seizures: No Hx Psychiatric Problems: Yes (anxiety) - Endocrine Hx Renal Disease: No Hx End Stage Renal Disease: No Hx Hypothyroidism: No Hx Hyperthyroidism: No - Hematic Hx Anemia: No Hx Sickle Cell Disease: No - Other Systems Hx Alcohol Use: No
--- NOTE | 2020-02-23 20:18 | Progress Note ---
Labor Epidural - Labor Epidural Start Time: 19:58 Stop Time: 20:10 Performed by:: ZULEIKA GALVEZ Procedure: Patient is requesting epidural for labor pain. H&P, and labs reviewed. Procedure explained, questions answered, consent obtained. Patient in sitting position with blood pressure cuff and pulse ox on and working. Timeout performed immediately before start of procedure. Sterile betadine prep/drape. 3 mL 1% lidocaine skin wheal at L[3]-L[4]. 18-gauge Touhy epidural needle advanced to [id number] with saline at [7] cm. Epidural dexmedetomidine [30] mcg administered. Epidural catheter advanced to [12] cm, negative aspiration for blood and csf, negative test dose 3 ml 1.5% lidocaine with epinephrine. Sterile steri-strips and tegaderm applied, followed by tape reinforcement. Patient tolerated procedure well.
--- NOTE | 2020-02-23 21:14 | Progress Note ---
Assessment and Plan pt comfortable with epidural. T's CAT 1. augmentation PRN, encouraged pt to rest - Patient Problems (1) Non-reassuring electronic monitoring tracing Current Visit: Yes Status: Acute Plan to address problem: internal monitors applied close monitoring for wellbeing augmentation Dr. Conner aware (2) Active labor at term Current Visit: Yes Status: Acute (3) 40 weeks gestation of Current Visit: Yes Status: Acute Subjective - Subjective Date of service: 02/23/20 Principal diagnosis: IUP @ 40.2 LABOR Interval history: EDC Confirmation: 02/21/2020 Past History : 2 Term Births: 1 Premature Births: 0 Living Children: 1 Para: 1 Mult. Births: 0 Prev : 0 Aborta: 0 Elect. Ab: 0 Spont. Ab: 0 Ectopics: 0 # 1 Delivery date: 03/18/2012 Weeks Gestation: 39 labor: no Delivery type: Vacuum Hours of labor: 15 Anesthesia type: epidural Delivery location: [facility] Sex: female weight: 7.75 Comments: Meconium Past Medical History: Anxiety Fibroids (2016) Kidney Stone (2018) Past Surgical History: Cholecystectomy (2016) Family History Summary: Other family member - Has Family History of Hypertension - Entered On: 07/11/2019 Other family member - Has Family History of CVA or Stroke - Entered On: 07/11/2019 General Comments - FH: No Family History of Breast Cancer No Family History of Colon Cancer No Family History of Ovarvian Cancer Social History: Patient is single no etoh, no illicit drug use, no tobacco use Marital Status: Engaged Children: 1 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 of genital herpes: no Genetic History Congenital Heart Defect: Mom: no Dad: no Yolanda Disease: Mom: no Dad: no Thalassemia Mom: no Dad: no Neural Tube Defect Mom: no Dad: no Down's Syndrome Mom: no Dad: no George-Sachs Mom: no Dad: no Sickle Cell Disease/Trait Mom: no Dad: no Hemophilia Mom: no Dad: no Muscular Dystrophy Mom: no Dad: no Cystic Fibrosis Mom: no Dad: no Maggie Chorea Mom: no Dad: no Mental Retardation Mom: no Dad: no Fragile X Mom: no Dad: no Other Genetic/Chromosomal Disorder Mom: no Dad: no Child w/other defect Mom: no Dad: no Active Medications (reviewed today): RX 1 TABS ( VIT-FE FUMARATE-FA TABS) one po q day ZOFRAN ODT 8 MG ORAL TABLET DISINTEGRATING (ONDANSETRON) 1 po q12hrs prn MACROBID 100 MG ORAL CAPSULE (NITROFURANTOIN MONOHYD MACRO) 1 bid po PNV () Current Allergies (reviewed today): * HYDROCODONE (Critical) AUGMENTIN (AMOXICILLIN-POT CLAVULANATE TABS) (Critical) Patient reports: no new complaints (comfortable with epidural ) Objective - Vital Signs Vital Signs: Vital Signs - 12hr 02/23/20 02/23/20 02/23/20 17:35 17:54 17:58 Temperature 98.2 F Pulse Rate 114 H 109 H Respiratory 20 Rate Blood Pressure O2 Sat by Pulse 97 96 Oximetry 02/23/20 02/23/20 02/23/20 18:03 18:08 18:13 Temperature Pulse Rate 116 H 111 H 112 H Respiratory Rate Blood Pressure O2 Sat by Pulse 96 96 97 Oximetry 02/23/20 02/23/20 02/23/20 18:33 18:52 19:00 Temperature 98.6 F Pulse Rate 104 H 116 H Respiratory Rate Blood Pressure 121/68 O2 Sat by Pulse 97 Oximetry 02/23/20 02/23/20 02/23/20 19:05 19:10 19:15 Temperature Pulse Rate 104 H 110 H 104 H Respiratory Rate Blood Pressure O2 Sat by Pulse 98 98 98 Oximetry 02/23/20 02/23/20 02/23/20 19:20 19:25 19:30 Temperature Pulse Rate 102 H 107 H 100 H Respiratory Rate Blood Pressure O2 Sat by Pulse 97 97 98 Oximetry 02/23/20 02/23/20 02/23/20 19:49 19:54 19:59 Temperature Pulse Rate 102 H 111 H 103 H Respiratory Rate Blood Pressure 127/75 O2 Sat by Pulse 97 96 97 Oximetry 02/23/20 02/23/20 02/23/20 20:04 20:09 20:11 Temperature Pulse Rate 105 H 104 H 96 H Respiratory Rate Blood Pressure 114/73 O2 Sat by Pulse 97 97 Oximetry 02/23/20 02/23/20 02/23/20 20:13 20:14 20:15 Temperature Pulse Rate 105 H 105 H 99 H Respiratory Rate Blood Pressure 117/70 116/64 O2 Sat by Pulse 97 Oximetry 02/23/20 02/23/20 02/23/20 20:17 20:19 20:21 Temperature Pulse Rate 105 H 107 H 93 H Respiratory Rate Blood Pressure 114/62 112/63 112/56 O2 Sat by Pulse 97 Oximetry 02/23/20 02/23/20 02/23/20 20:23 20:24 20:25 Temperature Pulse Rate 93 H 96 H 91 H Respiratory Rate Blood Pressure 109/57 109/55 O2 Sat by Pulse 96 Oximetry 02/23/20 02/23/20 02/23/20 20:27 20:29 20:31 Temperature Pulse Rate 103 H 90 93 H Respiratory Rate Blood Pressure 104/54 102/55 105/56 O2 Sat by Pulse 96 Oximetry 02/23/20 02/23/20 02/23/20 20:34 20:39 20:44 Temperature Pulse Rate 92 H 90 77 Respiratory Rate Blood Pressure O2 Sat by Pulse 96 96 97 Oximetry 02/23/20 02/23/20 02/23/20 20:49 20:54 20:59 Temperature Pulse Rate 87 97 H 101 H Respiratory Rate Blood Pressure O2 Sat by Pulse 95 97 97 Oximetry 02/23/20 02/23/20 21:02 21:04 Temperature Pulse Rate 89 86 Respiratory Rate Blood Pressure 107/58 O2 Sat by Pulse 98 Oximetry - Exam Lungs: Clear to auscultation Abdomen: Present: normal appearance Vulva: both: normal Uterus: Present: normal FHR: category 1 Uterine Contraction Monitor Mode: Internal Cervical Dilatation: 3 (AROM meconium stained fluid, moderate amount) Cervical Effacement Percentage: 60 station: -2 Uterine Contraction Pattern: Regular Uterine Contraction Intensity: Moderate Extremities: normal - Labs Labs: Abnormal Labs 02/23/20 18:00 WBC 12.9 H Hgb 9.9 L MCH 26 L RDW 15.5 H Laboratory Results - last 24 hr 02/23/20 02/23/20 02/23/20 18:00 18:00 18:00 WBC 12.9 H RBC 3.88 Hgb 9.9 L Hct 30.8 MCV 79 MCH 26 L MCHC 32 RDW 15.5 H Plt Count 262 Syphilis IgG Antibody Nonreactive Blood Type O POSITIVE Antibody Screen Negative
[2020-02-23] MEDS: fentaNYL-BUPIV 2 MCG/ML-0.125% 200 MCG/100 ML BAG EPIDURAL SCH (21:18)
[2020-02-24] MEDS: fentaNYL-BUPIV 2 MCG/ML-0.125% 200 MCG/100 ML BAG EPIDURAL SCH (05:08)
[2020-02-24] MEDS: LACTATED RINGERS 1,000 ML IV SCH (05:15)
--- NOTE | 2020-02-24 05:47 | Progress Note ---
Assessment and Plan - Patient Problems (1) Non-reassuring electronic monitoring tracing Current Visit: Yes Status: Acute Plan to address problem: Augmentation in progress anticipate (2) Active labor at term Current Visit: Yes Status: Acute (3) 40 weeks gestation of Current Visit: Yes Status: Acute Subjective - Subjective Date of service: 02/24/20 Principal diagnosis: IUP @ 40.2 LABOR Interval history: EDC Confirmation: 02/21/2020 Past History : 2 Term Births: 1 Premature Births: 0 Living Children: 1 Para: 1 Mult. Births: 0 Prev : 0 Aborta: 0 Elect. Ab: 0 Spont. Ab: 0 Ectopics: 0 # 1 Delivery date: 03/18/2012 Weeks Gestation: 39 labor: no Delivery type: Vacuum Hours of labor: 15 Anesthesia type: epidural Delivery location: [facility] Infant Sex: female weight: 7.75 Comments: Meconium Past Medical History: Anxiety Fibroids (2017) Kidney Stone (2018) Past Surgical History: Cholecystectomy (2016) Family History Summary: Other family member - Has Family History of Hypertension - Entered On: 07/11/2019 Other family member - Has Family History of CVA or Stroke - Entered On: 07/11/2019 General Comments - FH: No Family History of Breast Cancer No Family History of Colon Cancer No Family History of Ovarvian Cancer Social History: Patient is single no etoh, no illicit drug use, no tobacco use Marital Status: Engaged Children: 1 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 of genital herpes: no Genetic History Congenital Heart Defect: Mom: no Dad: no Yolanda Disease: Mom: no Dad: no Thalassemia Mom: no Dad: no Neural Tube Defect Mom: no Dad: no Down's Syndrome Mom: no Dad: no George-Sachs Mom: no Dad: no Sickle Cell Disease/Trait Mom: no Dad: no Hemophilia Mom: no Dad: no Muscular Dystrophy Mom: no Dad: no Cystic Fibrosis Mom: no Dad: no Nelson Chorea Mom: no Dad: no Mental Retardation Mom: no Dad: no Fragile X Mom: no Dad: no Other Genetic/Chromosomal Disorder Mom: no Dad: no Child w/other defect Mom: no Dad: no Active Medications (reviewed today): RX 1 TABS ( VIT-FE FUMARATE-FA TABS) one po q day ZOFRAN ODT 8 MG ORAL TABLET DISINTEGRATING (ONDANSETRON) 1 po q12hrs prn MACROBID 100 MG ORAL CAPSULE (NITROFURANTOIN MONOHYD MACRO) 1 bid po PNV () Current Allergies (reviewed today): * HYDROCODONE (Critical) AUGMENTIN (AMOXICILLIN-POT CLAVULANATE TABS) (Critical) Patient reports: no new complaints (comfortable with epidural ) Objective - Vital Signs Vital Signs: Vital Signs - 12hr 02/23/20 02/23/20 02/23/20 17:54 17:58 18:03 Temperature Pulse Rate 114 H 109 H 116 H Respiratory Rate Blood Pressure O2 Sat by Pulse 97 96 96 Oximetry 02/23/20 02/23/20 02/23/20 18:08 18:13 18:33 Temperature Pulse Rate 111 H 112 H 104 H Respiratory Rate Blood Pressure 121/68 O2 Sat by Pulse 96 97 Oximetry 02/23/20 02/23/20 02/23/20 18:52 19:00 19:05 Temperature 98.6 F Pulse Rate 116 H 104 H Respiratory Rate Blood Pressure O2 Sat by Pulse 97 98 Oximetry 02/23/20 02/23/20 02/23/20 19:10 19:15 19:20 Temperature Pulse Rate 110 H 104 H 102 H Respiratory Rate Blood Pressure O2 Sat by Pulse 98 98 97 Oximetry 02/23/20 02/23/20 02/23/20 19:25 19:30 19:49 Temperature Pulse Rate 107 H 100 H 102 H Respiratory Rate Blood Pressure 127/75 O2 Sat by Pulse 97 98 97 Oximetry 02/23/20 02/23/20 02/23/20 19:54 19:59 20:04 Temperature Pulse Rate 111 H 103 H 105 H Respiratory Rate Blood Pressure O2 Sat by Pulse 96 97 97 Oximetry 02/23/20 02/23/2002/22/20 20:09 20:11 20:13 Temperature Pulse Rate 104 H 96 H 105 H Respiratory Rate Blood Pressure 114/73 117/70 O2 Sat by Pulse 97 Oximetry 02/23/20 02/23/20 02/23/20 20:14 20:15 20:17 Temperature 98.8 F Pulse Rate 105 H 99 H 105 H Respiratory 20 Rate Blood Pressure 116/64 114/62 O2 Sat by Pulse 97 Oximetry 02/23/20 02/23/20 02/23/20 20:19 20:21 20:23 Temperature Pulse Rate 107 H 93 H 93 H Respiratory Rate Blood Pressure 112/63 112/56 109/57 O2 Sat by Pulse 97 Oximetry 02/23/20 02/23/20 02/23/20 20:24 20:25 20:27 Temperature Pulse Rate 96 H 91 H 103 H Respiratory Rate Blood Pressure 109/55 104/54 O2 Sat by Pulse 96 Oximetry 02/23/20 02/23/20 02/23/20 20:29 20:31 20:34 Temperature Pulse Rate 90 93 H 92 H Respiratory Rate Blood Pressure 102/55 105/56 O2 Sat by Pulse 96 96 Oximetry 02/23/20 02/23/20 02/23/20 20:39 20:44 20:49 Temperature Pulse Rate 90 77 87 Respiratory Rate Blood Pressure O2 Sat by Pulse 96 97 95 Oximetry 02/23/20 02/23/20 02/23/20 20:54 20:59 21:01 Temperature 98.3 F Pulse Rate 97 H 101 H Respiratory 20 Rate Blood Pressure O2 Sat by Pulse 97 97 Oximetry 02/23/20 02/23/20 02/23/20 21:02 21:04 21:09 Temperature Pulse Rate 89 86 81 Respiratory Rate Blood Pressure 107/58 O2 Sat by Pulse 98 97 Oximetry 02/23/20 02/23/20 02/23/20 21:14 21:19 21:24 Temperature Pulse Rate 79 87 85 Respiratory Rate Blood Pressure O2 Sat by Pulse 97 97 97 Oximetry 02/23/20 02/23/20 02/23/20 21:29 21:32 21:34 Temperature Pulse Rate 88 82 93 H Respiratory Rate Blood Pressure 102/53 O2 Sat by Pulse 98 97 Oximetry 02/23/20 02/23/20 02/23/20 21:39 21:44 21:48 Temperature Pulse Rate 77 78 81 Respiratory Rate Blood Pressure O2 Sat by Pulse 97 95 94 Oximetry 02/23/20 02/23/20 02/23/20 21:49 21:54 21:59 Temperature Pulse Rate 79 79 93 H Respiratory Rate Blood Pressure O2 Sat by Pulse 94 97 96 Oximetry 02/23/20 02/23/20 02/23/20 22:03 22:04 22:09 Temperature Pulse Rate 82 86 86 Respiratory Rate Blood Pressure 106/56 O2 Sat by Pulse 96 97 Oximetry 02/23/20 02/23/20 02/23/20 22:14 22:19 22:24 Temperature Pulse Rate 89 92 H 80 Respiratory Rate Blood Pressure O2 Sat by Pulse 97 98 98 Oximetry 02/23/20 02/23/20 02/23/20 22:29 22:32 22:34 Temperature Pulse Rate 90 78 76 Respiratory Rate Blood Pressure 101/52 O2 Sat by Pulse 99 100 Oximetry 02/23/20 02/23/20 02/23/20 22:39 22:44 22:49 Temperature Pulse Rate 72 76 73 Respiratory Rate Blood Pressure O2 Sat by Pulse 99 99 100 Oximetry 02/23/20 02/23/20 02/23/20 22:54 22:59 23:00 Temperature 98.1 F Pulse Rate 74 75 Respiratory 20 Rate Blood Pressure O2 Sat by Pulse 100 99 Oximetry 02/23/20 02/23/20 02/23/20 23:01 23:04 23:09 Temperature Pulse Rate 77 84 73 Respiratory Rate Blood Pressure 97/56 O2 Sat by Pulse 99 100 Oximetry 02/23/20 02/23/20 02/23/20 23:14 23:18 23:19 Temperature Pulse Rate 73 79 Respiratory 18 Rate Blood Pressure O2 Sat by Pulse 100 100 Oximetry 02/23/20 02/23/20 02/23/20 23:24 23:29 23:31 Temperature Pulse Rate 78 74 70 Respiratory Rate Blood Pressure 99/51 O2 Sat by Pulse 99 100 Oximetry 02/23/20 02/23/20 02/23/20 23:34 23:39 23:44 Temperature Pulse Rate 78 86 69 Respiratory Rate Blood Pressure O2 Sat by Pulse 100 99 100 Oximetry 02/23/20 02/23/20 02/23/20 23:49 23:54 23:59 Temperature Pulse Rate 70 94 H 78 Respiratory Rate Blood Pressure O2 Sat by Pulse 99 99 99 Oximetry 02/24/20 02/24/20 02/24/20 00:03 00:04 00:09 Temperature Pulse Rate 75 71 77 Respiratory Rate Blood Pressure 106/61 O2 Sat by Pulse 99 99 Oximetry 02/24/20 02/24/20 02/24/20 00:14 00:19 00:24 Temperature Pulse Rate 95 H 102 H 110 H Respiratory Rate Blood Pressure O2 Sat by Pulse 99 100 99 Oximetry 02/24/20 02/24/20 02/24/20 00:29 00:31 00:34 Temperature Pulse Rate 95 H 96 H 81 Respiratory Rate Blood Pressure 109/62 O2 Sat by Pulse 100 100 Oximetry 02/24/20 02/24/20 02/24/20 00:39 00:44 00:49 Temperature Pulse Rate 80 78 94 H Respiratory Rate Blood Pressure O2 Sat by Pulse 100 100 100 Oximetry 02/24/20 02/24/20 02/24/20 00:54 00:59 01:00 Temperature 98.4 F Pulse Rate 79 84 Respiratory 20 Rate Blood Pressure O2 Sat by Pulse 98 100 Oximetry 02/24/20 02/24/20 02/24/20 01:01 01:04 01:09 Temperature Pulse Rate 101 H 98 H 95 H Respiratory Rate Blood Pressure 108/65 O2 Sat by Pulse 99 98 Oximetry 02/24/20 02/24/20 02/24/20 01:14 01:18 01:19 Temperature Pulse Rate 96 H 96 H Respiratory 18 Rate Blood Pressure O2 Sat by Pulse 97 98 Oximetry 02/24/20 02/24/20 02/24/20 01:24 01:29 01:31 Temperature Pulse Rate 85 87 90 Respiratory Rate Blood Pressure 102/60 O2 Sat by Pulse 98 97 Oximetry 02/24/20 02/24/20 02/24/20 01:34 01:39 01:44 Temperature Pulse Rate 98 H 98 H 96 H Respiratory Rate Blood Pressure O2 Sat by Pulse 98 98 97 Oximetry 02/24/20 02/24/20 02/24/20 01:49 01:54 01:59 Temperature Pulse Rate 84 90 91 H Respiratory Rate Blood Pressure O2 Sat by Pulse 96 97 95 Oximetry 02/24/20 02/24/20 02/24/20 02:01 02:04 02:09 Temperature Pulse Rate 96 H 86 93 H Respiratory Rate Blood Pressure 97/53 O2 Sat by Pulse 97 96 Oximetry 02/24/20 02/24/20 02/24/20 02:14 02:19 02:24 Temperature Pulse Rate 104 H 89 93 H Respiratory Rate Blood Pressure O2 Sat by Pulse 96 97 96 Oximetry 02/24/20 02/24/20 02/24/20 02:29 02:31 02:32 Temperature Pulse Rate 89 86 106 H Respiratory Rate Blood Pressure 110/59 O2 Sat by Pulse 97 93 Oximetry 02/24/20 02/24/20 02/24/20 02:34 02:39 02:44 Temperature Pulse Rate 107 H 105 H 103 H Respiratory Rate Blood Pressure O2 Sat by Pulse 94 99 99 Oximetry 02/24/20 02/24/20 02/24/20 02:49 02:54 02:59 Temperature Pulse Rate 107 H 99 H 95 H Respiratory Rate Blood Pressure O2 Sat by Pulse 99 100 98 Oximetry 02/24/20 02/24/20 02/24/20 03:00 03:01 03:04 Temperature 98.8 F Pulse Rate 92 H 94 H Respiratory 18 Rate Blood Pressure 107/59 O2 Sat by Pulse 99 Oximetry 02/24/20 02/24/20 02/24/20 03:09 03:14 03:18 Temperature Pulse Rate 103 H 97 H Respiratory 18 Rate Blood Pressure O2 Sat by Pulse 99 99 Oximetry 02/24/20 02/24/20 02/24/20 03:19 03:24 03:29 Temperature Pulse Rate 93 H 113 H 95 H Respiratory Rate Blood Pressure O2 Sat by Pulse 97 98 99 Oximetry 02/24/20 02/24/20 02/24/20 03:34 03:39 03:44 Temperature Pulse Rate 109 H 115 H 122 H Respiratory Rate Blood Pressure O2 Sat by Pulse 98 100 99 Oximetry 02/24/20 02/24/20 02/24/20 03:49 03:54 03:59 Temperature Pulse Rate 113 H 121 H 109 H Respiratory Rate Blood Pressure O2 Sat by Pulse 98 100 99 Oximetry 02/24/20 02/24/20 02/24/20 04:01 04:04 04:09 Temperature Pulse Rate 109 H 126 H 107 H Respiratory Rate Blood Pressure 106/56 O2 Sat by Pulse 99 98 Oximetry 02/24/20 02/24/20 02/24/20 04:14 04:19 04:24 Temperature Pulse Rate 115 H 124 H 111 H Respiratory Rate Blood Pressure O2 Sat by Pulse 99 99 99 Oximetry 02/24/20 02/24/20 02/24/20 04:29 04:34 04:39 Temperature Pulse Rate 105 H 113 H 123 H Respiratory Rate Blood Pressure O2 Sat by Pulse 99 99 99 Oximetry 02/24/20 02/24/20 02/24/20 04:44 04:49 04:54 Temperature Pulse Rate 111 H 120 H 134 H Respiratory Rate Blood Pressure O2 Sat by Pulse 98 98 99 Oximetry 02/24/20 02/24/20 02/24/20 04:59 05:01 05:04 Temperature Pulse Rate 132 H 113 H 126 H Respiratory Rate Blood Pressure 130/60 O2 Sat by Pulse 99 98 Oximetry 02/24/20 02/24/20 02/24/20 05:09 05:12 05:14 Temperature Pulse Rate 119 H 121 H 133 H Respiratory Rate Blood Pressure 124/56 134/69 O2 Sat by Pulse 99 100 Oximetry 02/24/20 02/24/20 02/24/20 05:16 05:19 05:20 Temperature Pulse Rate 130 H 118 H 115 H Respiratory Rate Blood Pressure 122/59 138/83 108/81 O2 Sat by Pulse 100 Oximetry 02/24/20 02/24/20 02/24/20 05:22 05:24 05:26 Temperature Pulse Rate 104 H 104 H 98 H Respiratory Rate Blood Pressure 135/60 124/60 126/67 O2 Sat by Pulse 95 Oximetry 02/24/20 02/24/20 02/24/20 05:28 05:29 05:30 Temperature Pulse Rate 97 H 98 H 96 H Respiratory Rate Blood Pressure 124/63 130/64 O2 Sat by Pulse 95 Oximetry 02/24/20 02/24/20 02/24/20 05:32 05:34 05:39 Temperature Pulse Rate 96 H 94 H 96 H Respiratory Rate Blood Pressure 116/59 O2 Sat by Pulse 96 96 Oximetry - Exam Cardiovascular: Regular rate Lungs: Normal air movement Abdomen: Present: normal appearance, soft Vulva: both: normal Uterus: Present: normal, fundal height at umbilicus FHR: category 2 Uterine Contraction Monitor Mode: Internal Cervical Dilatation: 8 station: -1 Uterine Contraction Pattern: Regular Uterine Tone Measurement Phase: Contraction Uterine Contraction Intensity: Moderate Extremities: normal - Labs Labs: Abnormal Labs 02/23/20 18:00 WBC 12.9 H Hgb 9.9 L MCH 26 L RDW 15.5 H Laboratory Results - last 24 hr 02/23/20 02/23/20 02/23/20 18:00 18:00 18:00 WBC 12.9 H RBC 3.88 Hgb 9.9 L Hct 30.8 MCV 79 MCH 26 L MCHC 32 RDW 15.5 H Plt Count 262 Syphilis IgG Antibody Nonreactive Blood Type O POSITIVE Antibody Screen Negative
[2020-02-24] MEDS ORDERED: ACETAMINOPHEN 325 MG TAB PO PRN ×2 (06:58→08:00)
[2020-02-24] MEDS ORDERED: ONDANSETRON 4 MG/2 ML INJ IV PRN (06:58)
[2020-02-24] MEDS ORDERED: BENZOCAINE/MENTHOL 20/0.5% TOP SPRAY 56 GM TP PRN (06:58)
[2020-02-24] MEDS ORDERED: PROMETHAZINE 25 MG TAB PO PRN (06:58)
[2020-02-24] MEDS ORDERED: WITCH HAZEL/ GLYCERIN PAD TP PRN (06:58)
[2020-02-24] MEDS ORDERED: MAGNESIUM HYDROXIDE (MOM) ORAL LIQD UDC PO PRN (06:58)
[2020-02-24] MEDS ORDERED: PROMETHAZINE 25 MG RECT SUPP PR PRN (06:58)
[2020-02-24] MEDS ORDERED: diphenhydrAMINE 25 MG CAP PO PRN (06:58)
[2020-02-24] MEDS ORDERED: LANOLIN/ZINC/DIMETHICONE (LANSINOH) 7 GM TP PRN (06:58)
[2020-02-24] MEDS ORDERED: OXYTOCIN 20 UNIT/1000ML DRIP 20 UNITS/1,000 ML BAG IV SCH (07:00)
--- NOTE | 2020-02-24 07:08 | Procedure Note ---
OB Delivery Note - Delivery Date of Delivery: 02/24/20 ( female "PADMINI") Print Developer Automatic: KARMEN URIARET (Abimael THOMPSON) Estimated blood loss: 300cc - Vaginal Delivery presentation: vertex Delivery position: OA Intrapartum events: meconium Delivery induction: AROM Delivery augmentation: rupture of membranes, pitocin Delivery monitor: internal FHT, internal uterine Route of delivery: Delivery placenta: spontaneous Delivery cord: 3 umbilical vessels Episiotomy: none Delivery laceration: none Anesthesia: epidural Delivery comments: female infant born over intact perineum, FLORENCIO, left shoulder anterior, no shoulder dysocia. baby's torso difficult to deliver d/t lack of maternal coordinated pushing. cord clamped and cut, handed off to awaiting NICU team. placenta del intact and complete, no lacerations to repair. EBL 300. apgars 6/8, wt 8#13oz, all counts correct, mother and LDR stable. - A at 1 minute: 6 at 5 minutes: 8 Infant Gender: Female (8#13oz)
[2020-02-24] MEDS: PRENATAL VIT27-FE FUMARATE-FOLIC ACID VIT TAB PO SCH (10:50)
[2020-02-24] MEDS: DOCUSATE SODIUM 100 MG CAP PO SCH ×2 (10:50→23:24)
[2020-02-24] MEDS: IBUPROFEN 800 MG TAB PO SCH ×3 (10:51→23:23)
[2020-02-24] MEDS: ACETAMINOPHEN 500 MG TAB PO PRN (17:08)
[2020-02-24 18:13] LABS: Hemoglobin 8.8 gm/dl (10.1-14.3)
--- NOTE | 2020-02-24 20:06 | Post Anesthesia Evaluation ---
- Post Anesthesia Evaluation Patient Participated: Yes Airway Patent: Yes Stable Respiratory Function: Yes Nausea/Vomiting: No Temp > 96.8F: Yes Pain Manageable: Yes Adequeate Hydration: Yes Anesthesia Complications: No Block Receding Appropriately: Yes
[2020-02-25] MEDS: ACETAMINOPHEN 500 MG TAB PO PRN ×3 (04:19→21:59)
[2020-02-25] MEDS ORDERED: DIPHtheria,PERTUSSIS(ACELL),TETANUS VACCINE/PF 0.5 ML VIAL IM ONE (07:00)
--- NOTE | 2020-02-25 07:39 | Discharge Summary ---
Providers - Providers Date of Admission: 02/23/20 17:43 Date of discharge: 02/25/20 (Pt stable for discharge home. ) Attending physician: LEXII JEAN Primary care physician: LEXII JEAN Hospitalization Reason for admission: active labor Delivery: Episiotomy: none Laceration: none Other procedures: none complications: none Discharge diagnosis: IUP at term delivered [place] baby: female Hospital course: S: Pt doing well. Ambulating, voiding, and passing flatus okay. Pain controlled. BC: none. O: VSS. Fundus firm, minimal bleeding noted. Adequate I&O's. H/H 8.8/27.0. Anemia d/t delivery. Pt is asymptomatic. A: 29 y.o. s/p @ term, stable , stable for discharge home. P: Discharge home with instructions. Pt to take iron supplements at home. To schedule a visit in 4 weeks. Condition at discharge: Good Disposition: DC-[id number] TO HOME OR SELFCARE Plan - Discharge Medications Prescriptions: Ferrous Sulfate [Feosol 325 MG tab] 325 mg PO QDAY #30 tablet - Provider Discharge Summary Activity: routine, no sex for 6 weeks, no heavy lifting 4 weeks, no strenuous exercise Diet: routine Instructions: routine Additional instructions: [] Smoking cessation referral if applicable(refer to patient education folder for contact #) [] Refer to [facility] Booklet Call your doctor immediately for: * Fever > 100.5 * Heavy vaginal bleeding ( >1 pad per hour) * Severe persistent headache * Shortness of breath * Reddened, hot, painful area to leg or breast * Drainage or odor from incision. * Keep incision clean and dry at all times and follow doctor's instructions regarding bathing/showering - Follow up plan Follow up: LEXII JEAN MD [Primary Care Provider] - 7 Days (Congratulations! Please schedule your visit in 4 weeks. Please take iron supplement at home as prescribed. If you have any questions or concerns, please do not hesitate to call the office at [phone]. )
[2020-02-25] MEDS: DOCUSATE SODIUM 100 MG CAP PO SCH ×2 (10:39→21:57)
[2020-02-25] MEDS: PRENATAL VIT27-FE FUMARATE-FOLIC ACID VIT TAB PO SCH (10:39)
[2020-02-25] MEDS: IBUPROFEN 800 MG TAB PO SCH ×2 (10:39→18:07)
[2020-02-26] MEDS: IBUPROFEN 800 MG TAB PO SCH (04:26)
[2020-02-26 08:53] VITALS: BP 117/71
== END 2020-02-26 09:40 | disposition home or self-care (01) | DRG 775 ==
LOC: TRG 17:13 → APU 17:14 → TRG 17:43 → LD 17:43 → OB 02-24 08:51
PROVIDERS: ADMIT Obstetrics & Gynecology; ATTEND Obstetrics & Gynecology
PROC: 10E0XZZ Delivery of Products of Conception, External Approach (ICD-10-PCS; principal; 2020-02-24)
PROC: 3E0R3BZ Introduction of Anesthetic Agent into Spinal Canal, Percutaneous Approach (ICD-10-PCS; 2020-02-24)
PROC: 00HU33Z Insertion of Infusion Device into Spinal Canal, Percutaneous Approach (ICD-10-PCS; 2020-02-24)
PROC: 10907ZC Drainage of Amniotic Fluid, Therapeutic from Products of Conception, Via Natural or Artificial Opening (ICD-10-PCS; 2020-02-24)
PROC: 3E0234Z Introduction of Serum, Toxoid and Vaccine into Muscle, Percutaneous Approach (ICD-10-PCS; 2020-02-25)
DX: O77.0 Labor and delivery complicated by meconium in amniotic fluid (principal); O99.344 Other mental disorders complicating childbirth; O76 Abnormality in fetal heart rate and rhythm complicating labor and delivery; F41.9 Anxiety disorder, unspecified; Z37.0 Single live birth; Z3A.40 40 weeks gestation of pregnancy; Z23 Encounter for immunization; Z90.49 Acquired absence of other specified parts of digestive tract; Z82.49 Family history of ischemic heart disease and other diseases of the circulatory system; Z87.442 Personal history of urinary calculi
CPT/HCPCS: 36415; 59025; 85014; 85018; 85027; 86592; 86850; 86900; 86901; 96360; G0378; A6250; J2405; J2590; J3490; J7120; U0003-CS